=== PATIENT | male | born 1950 | race Caucasian/White ===

== ENCOUNTER 2017-04-18 03:27 | Inpatient (IN) | payer MEDICARE, OTHER ==
[~2017-04-18] VITALS: Ht 172.7 cm; Wt 74.0 kg
[2017-04-18] MEDS ORDERED: ALBUTEROL/IPRATROPIUM 2.5MG/0.5MG, 3 ML ONE ×2 (03:42→10:46)
[2017-04-18] MEDS ORDERED: PIPERACILLIN/TAZO/PMX 3.375GM 50 ML ONE (03:58)
[2017-04-18] MEDS ORDERED: methylPREDNISolone SOD SUCC 125 MG/2 ML ONE (03:58)
[2017-04-18] MEDS ORDERED: VANCOMYCIN PER PHARMACY IV ONE (04:00)
[2017-04-18] MEDS ORDERED: methylPREDNISolone SOD SUCC 125 MG/2 ML IVP ONE (04:00)
[2017-04-18] MEDS ORDERED: SODIUM CHLORIDE 0.9% 1,000ML IVBOLUS ONE (04:00)
[2017-04-18] MEDS ORDERED: PIPERACILLIN/TAZO/PMX 3.375GM 50 ML IV ONE (04:00)
[2017-04-18 04:09] LABS: BLOOD UREA NITROGEN 28 mg/dL (7-18)
[2017-04-18 04:12] LABS: ASPARTATE AMINO TRANSFERASE 18 U/L (15-37)
[2017-04-18] MEDS ORDERED: VANCOMYCIN 1,500 MG in SODIUM CHLORIDE 0.9% 250 ML IV ONE (04:15)
[2017-04-18 04:17] LABS: IS PT STATUS REG ER OR PRE ER? YES
[2017-04-18] MEDS ORDERED: OMEP40CA6 PO (04:23)
[2017-04-18] MEDS ORDERED: ATOR40TA78 PO (04:23)
[2017-04-18] MEDS ORDERED: AMLO5TAB2 PO (04:23)
[2017-04-18] MEDS ORDERED: LISI40TA PO (04:23)
[2017-04-18] MEDS ORDERED: TRAZ150T68 PO (04:23)
[2017-04-18] MEDS ORDERED: METO25TA35 PO (04:23)
[2017-04-18] MEDS ORDERED: LITH300C PO (04:23)
[2017-04-18] MEDS ORDERED: SENN8.6T98 PO (04:33)
[2017-04-18] MEDS ORDERED: BUDE10.2 INH (04:33)
[2017-04-18] MEDS ORDERED: LATA2.5D2 OP (04:33)
[2017-04-18] MEDS ORDERED: TIOT18CA INH (04:33)
[2017-04-18] MEDS ORDERED: SODIUM CHLORIDE 0.9% 1,000 ML IV ONE (04:39)
[2017-04-18] MEDS ORDERED: ISOS30TA8 PO (04:40)
[2017-04-18] MEDS ORDERED: GUAI600T53 PO (04:40)
[2017-04-18] MEDS ORDERED: PRED20TA PO (04:40)
[2017-04-18] MEDS ORDERED: ALBUTEROL INHALER INH (04:40)
[2017-04-18] MEDS ORDERED: DABI150C PO (04:40)
[2017-04-18] MEDS ORDERED: LEVO750T6 PO (04:40)
[2017-04-18] MEDS ORDERED: CLOP75TA22 PO (04:40)
[2017-04-18] MEDS: ALBUTEROL SULFATE 2.5 MG/3 ML NPPB SCH (04:48)
[2017-04-18] MEDS ORDERED: ONDANSETRON 2MG/ML, 2ML IVPush PRN ×2 (05:00→05:30)
[2017-04-18 05:30] LABS: ABG COLLECTION SITE RIGHT BRACHIAL
[2017-04-18] MEDS: methylPREDNISolone SOD SUCC 125 MG/2 ML IVPush SCH ×4 (05:30→23:43)
[2017-04-18] MEDS ORDERED: hydrALAzine 20 MG/ML, 1ML IVPush PRN (05:30)
[2017-04-18] MEDS ORDERED: morphine SULFATE 10 MG/ML, 1ML IVPush PRN (05:30)
[2017-04-18] MEDS ORDERED: POLYETHYLENE GLYCOL 17 GM PACKET PO PRN (05:30)
[2017-04-18] MEDS: NICOTINE 14MG/24 HR PATCH.TD24 TD SCH (05:30)
[2017-04-18] MEDS ORDERED: BISACODYL 10 MG SUPP PR PRN (05:30)
[2017-04-18] MEDS ORDERED: ENOXAPARIN 40 MG/0.4 ML SQ SCH (05:30)
[2017-04-18] MEDS ORDERED: ACETAMINOPHEN 325 MG TABLET PO PRN (05:30)
[2017-04-18] MEDS ORDERED: ENALAPRILAT 1.25 MG/ML, 2ML IVPush PRN (05:30)
[2017-04-18] MEDS ORDERED: OXYcodone IR 5MG TABLET PO PRN (05:30)
[2017-04-18] MEDS: ALBUTEROL/IPRATROPIUM 2.5MG/0.5MG, 3 ML NPPB SCH ×5 (06:00→23:30)
[2017-04-18] MEDS: SODIUM CHLORIDE 0.9% 1,000 ML IV SCH ×2 (06:39→12:01)
[2017-04-18 07:50] LABS: IS PT STATUS REG ER OR PRE ER? YES
[2017-04-18] MEDS ORDERED: TEMPLATE NON-FORMULARY MED. (Budesonide/Formoterol Fumarate (Symbicort 160-4.5 Mcg Inhaler INH SCH (09:00)
[2017-04-18] MEDS ORDERED: TEMPLATE NON-FORMULARY MED. (Tiotropium Bromide** (Spiriva**) 18 MCG) INH SCH (09:00)
[2017-04-18] MEDS: SENNA/DOCUSATE TABLET PO SCH (10:06)
[2017-04-18] MEDS: GUAIFENESIN ER 600 MG TABLET PO SCH ×2 (10:06→22:24)
[2017-04-18] MEDS: DABIGATRAN 150 MG CAPSULE PO SCH ×2 (10:08→22:24)
[2017-04-18] MEDS: ISOSORBIDE MONONITRATE ER 30 MG TABLET PO SCH (10:08)
[2017-04-18] MEDS: CLOPIDOGREL 75 MG TABLET PO SCH (10:08)
[2017-04-18] MEDS: METOPROLOL TARTRATE 25 MG TABLET PO SCH ×2 (10:08→22:23)
[2017-04-18] MEDS: LITHIUM CARBONATE 300 MG CAPSULE PO SCH ×2 (10:09→22:24)
[2017-04-18] MEDS: OMEPRAZOLE 20 MG CAPSULE.DR PO SCH (10:10)
[2017-04-18] MEDS: AMLODIPINE 5 MG TABLET PO SCH (10:10)
[2017-04-18] MEDS: LISINOPRIL 20 MG TABLET PO SCH (10:11)
[2017-04-18] MEDS: LATANOPROST OPHTH 0.005%, 2.5ML OP SCH (10:12)
[2017-04-18] MEDS ORDERED: IPRATROPIUM 0.5 MG/2.5 ML INHA HHN SCH (11:00)
[2017-04-18] MEDS: FLUTICASONE/VILANTEROL 200-25MCG/INH INH SCH (11:33)
[2017-04-18 14:02] LABS: IS PT STATUS REG ER OR PRE ER? NO
[2017-04-18 20:09] LABS: IS PT STATUS REG ER OR PRE ER? NO
[2017-04-18] MEDS ORDERED: TRAZODONE 150MG TABLET PO PRN (21:00)
[2017-04-18] MEDS ORDERED: FLUTICASONE/VILANTEROL 200-25MCG/INH INH SCH (21:00)
[2017-04-18] MEDS: ATORVASTATIN 40 MG TABLET PO SCH (22:24)
[2017-04-19] MEDS: ALBUTEROL/IPRATROPIUM 2.5MG/0.5MG, 3 ML NPPB SCH ×5 (02:58→19:04)
[2017-04-19 04:00] VITALS: BP 116/58
[2017-04-19 04:43] LABS: ASPARTATE AMINO TRANSFERASE 12 U/L (15-37); BLOOD UREA NITROGEN 22 mg/dL (7-18)
[2017-04-19 04:58] LABS: ABG COLLECTION SITE LEFT BRACHIAL
[2017-04-19] MEDS: NICOTINE 14MG/24 HR PATCH.TD24 TD SCH (05:30)
[2017-04-19] MEDS: methylPREDNISolone SOD SUCC 125 MG/2 ML IVPush SCH ×3 (06:18→17:24)
[2017-04-19] MEDS: GUAIFENESIN ER 600 MG TABLET PO SCH ×2 (08:34→21:28)
[2017-04-19] MEDS: OMEPRAZOLE 20 MG CAPSULE.DR PO SCH (08:34)
[2017-04-19] MEDS: DABIGATRAN 150 MG CAPSULE PO SCH ×2 (08:34→21:27)
[2017-04-19] MEDS: ISOSORBIDE MONONITRATE ER 30 MG TABLET PO SCH (08:34)
[2017-04-19] MEDS: FLUTICASONE/VILANTEROL 200-25MCG/INH INH SCH (08:34)
[2017-04-19] MEDS: LITHIUM CARBONATE 300 MG CAPSULE PO SCH ×2 (08:34→21:27)
[2017-04-19] MEDS: CLOPIDOGREL 75 MG TABLET PO SCH (08:34)
[2017-04-19] MEDS: AMLODIPINE 5 MG TABLET PO SCH (08:34)
[2017-04-19] MEDS: METOPROLOL TARTRATE 25 MG TABLET PO SCH ×2 (08:35→21:28)
[2017-04-19] MEDS: SENNA/DOCUSATE TABLET PO SCH (08:35)
[2017-04-19] MEDS: LISINOPRIL 20 MG TABLET PO SCH (08:35)
[2017-04-19 11:26] LABS: IS PT STATUS REG ER OR PRE ER? NO
[2017-04-19 12:18] VITALS: BP 127/67
[2017-04-19 14:30] VITALS: BP 132/74
[2017-04-19 19:51] VITALS: BP 157/68
[2017-04-19] MEDS: ATORVASTATIN 40 MG TABLET PO SCH (21:28)
[2017-04-19] MEDS: LATANOPROST OPHTH 0.005%, 2.5ML OP SCH (21:28)
[2017-04-20] MEDS: methylPREDNISolone SOD SUCC 125 MG/2 ML IVPush SCH ×3 (00:05→11:25)
[2017-04-20 02:21] VITALS: BP 124/66
[2017-04-20] MEDS: NICOTINE 14MG/24 HR PATCH.TD24 TD SCH (05:30)
[2017-04-20 05:37] LABS: ASPARTATE AMINO TRANSFERASE 12 U/L (15-37); BLOOD UREA NITROGEN 26 mg/dL (7-18)
[2017-04-20 06:40] VITALS: BP 155/77
[2017-04-20] MEDS: ALBUTEROL/IPRATROPIUM 2.5MG/0.5MG, 3 ML NPPB SCH ×4 (07:25→20:00)
[2017-04-20] MEDS ORDERED: REGADENOSON 0.4 MG/5 ML SYRINGE ONE (08:54)
[2017-04-20 11:00] VITALS: BP 144/78
[2017-04-20] MEDS: OMEPRAZOLE 20 MG CAPSULE.DR PO SCH (11:25)
[2017-04-20] MEDS: DABIGATRAN 150 MG CAPSULE PO SCH ×2 (11:25→21:33)
[2017-04-20] MEDS: LITHIUM CARBONATE 300 MG CAPSULE PO SCH ×2 (11:25→21:33)
[2017-04-20] MEDS: ISOSORBIDE MONONITRATE ER 30 MG TABLET PO SCH (11:26)
[2017-04-20] MEDS: LISINOPRIL 20 MG TABLET PO SCH (11:26)
[2017-04-20] MEDS: GUAIFENESIN ER 600 MG TABLET PO SCH ×2 (11:26→21:33)
[2017-04-20] MEDS: AMLODIPINE 5 MG TABLET PO SCH (11:26)
[2017-04-20] MEDS: CLOPIDOGREL 75 MG TABLET PO SCH (11:26)
[2017-04-20] MEDS: METOPROLOL TARTRATE 25 MG TABLET PO SCH ×2 (11:26→21:33)
[2017-04-20] MEDS: FLUTICASONE/VILANTEROL 200-25MCG/INH INH SCH (11:27)
[2017-04-20] MEDS: SENNA/DOCUSATE TABLET PO SCH (11:33)
[2017-04-20 13:28] VITALS: BP 140/82
[2017-04-20] MEDS: LATANOPROST OPHTH 0.005%, 2.5ML OP SCH (21:00)
[2017-04-20 21:30] VITALS: BP 127/65
[2017-04-20] MEDS: ATORVASTATIN 40 MG TABLET PO SCH (21:33)
[2017-04-21 00:51] VITALS: BP 134/67
[2017-04-21 05:09] LABS: BLOOD UREA NITROGEN 28 mg/dL (7-18)
[2017-04-21] MEDS: NICOTINE 14MG/24 HR PATCH.TD24 TD SCH (05:21)
[2017-04-21] MEDS: ALBUTEROL/IPRATROPIUM 2.5MG/0.5MG, 3 ML NPPB SCH ×2 (06:50→10:30)
[2017-04-21] MEDS ORDERED: FLUT1AER INH (07:41)
[2017-04-21] MEDS ORDERED: PRED20TA PO (07:41)
[2017-04-21 08:00] VITALS: BP 145/73
[2017-04-21] MEDS: LATANOPROST OPHTH 0.005%, 2.5ML OP SCH (08:43)
[2017-04-21] MEDS: GUAIFENESIN ER 600 MG TABLET PO SCH (08:44)
[2017-04-21] MEDS: ISOSORBIDE MONONITRATE ER 30 MG TABLET PO SCH (08:45)
[2017-04-21] MEDS: LITHIUM CARBONATE 300 MG CAPSULE PO SCH (08:45)
[2017-04-21] MEDS: AMLODIPINE 5 MG TABLET PO SCH (08:47)
[2017-04-21] MEDS: METOPROLOL TARTRATE 25 MG TABLET PO SCH (08:47)
[2017-04-21] MEDS: LISINOPRIL 20 MG TABLET PO SCH (08:49)
[2017-04-21] MEDS: CLOPIDOGREL 75 MG TABLET PO SCH (08:49)
[2017-04-21] MEDS: DABIGATRAN 150 MG CAPSULE PO SCH (08:49)
[2017-04-21] MEDS: SENNA/DOCUSATE TABLET PO SCH (08:50)
[2017-04-21] MEDS: OMEPRAZOLE 20 MG CAPSULE.DR PO SCH (08:50)
[2017-04-21] MEDS ORDERED: FLUTICASONE/VILANTEROL 100-25MCG/INH INH SCH (09:00)
== END 2017-04-21 12:07 | disposition home or self-care (01) | DRG 189 ==
LOC: ED 04:02 → EDIP 04:39 → CCU 11:27 → 5SO 04-19 12:08
PROVIDERS: ADMIT Internal Medicine
PROC: 5A09357 Assistance with Respiratory Ventilation, Less than 24 Consecutive Hours, Continuous Positive Airway Pressure (ICD-10-PCS; principal; 2017-04-18)
DX: J96.21 Acute and chronic respiratory failure with hypoxia (principal); J44.1 Chronic obstructive pulmonary disease with (acute) exacerbation; E87.2 Acidosis; R65.10 Systemic inflammatory response syndrome (SIRS) of non-infectious origin without acute organ dysfunction; I73.9 Peripheral vascular disease, unspecified; C67.9 Malignant neoplasm of bladder, unspecified; D63.8 Anemia in other chronic diseases classified elsewhere; D72.829 Elevated white blood cell count, unspecified; E78.5 Hyperlipidemia, unspecified; I11.0 Hypertensive heart disease with heart failure; I25.10 Atherosclerotic heart disease of native coronary artery without angina pectoris; I48.91 Unspecified atrial fibrillation; I50.9 Heart failure, unspecified; J96.22 Acute and chronic respiratory failure with hypercapnia; N40.0 Benign prostatic hyperplasia without lower urinary tract symptoms; T38.0X5A Adverse effect of glucocorticoids and synthetic analogues, initial encounter; Z51.5 Encounter for palliative care; Z82.49 Family history of ischemic heart disease and other diseases of the circulatory system; Z86.79 Personal history of other diseases of the circulatory system; Z87.891 Personal history of nicotine dependence; Z95.1 Presence of aortocoronary bypass graft; Z95.5 Presence of coronary angioplasty implant and graft
CPT/HCPCS: 36415; 36600; 71010; 78452; 80048; 80053; 81003; 82803; 83036; 83605; 83735; 83880; 84145; 84439; 84443; 84484; 85025; 87040; 87081; 93005; 93017; 93306; 94640; 94660; 96361; 96365; 96375; J2543; J2785; J3370; J7613; J7620; A9502; C9898; J2930; J7030; J7050; J7512

== ENCOUNTER 2018-06-24 21:53 | Inpatient (IN) | payer MEDICARE ==
[~2018-06-24] VITALS: Ht 172.7 cm; Wt 87.0 kg
[~2018-06-24 21:53] MED LIST: ALBUTEROL INHALER INH; AMLO5TAB7 PO; ATOR40TA78 PO; BUDE10.2 INH; CLOP75TA52 PO; DABI150C PO; FLUT1AER INH; GUAI600T80 PO; ISOS30TA8 PO; LATA2.5D2 OP; LEVO750T6 PO; LISI40TA PO; LITH300C PO; METO25TA35 PO; OMEP40CA6 PO; PRED20TA PO; SENN8.6T98 PO; TIOT18CA INH; TRAZ150T62 PO
[2018-06-24] MEDS ORDERED: SODIUM CHLORIDE FLUSH 10ML SYR IVF ONE (22:30)
[2018-06-24 22:35] LABS: BASOPHILS # (AUTO) 0.04 x10^3/uL (0-0.1); BASOPHILS % (AUTO) 0 % (0-1); EOSINOPHILS # (AUTO) 0.14 x10^3/uL (0-0.4); EOSINOPHILS % (AUTO) 1 % (1-7); LYMPHOCYTES # (AUTO) 0.73 x10^3/uL (1-3.4); LYMPHOCYTES % (AUTO) 7 % (22-44); MD NO; MEAN CORPUSCULAR HEMOGLOBIN 29.7 pg (27.5-34.5); MEAN CORPUSCULAR VOLUME 90.1 fL (81-97); MEAN PLATELET VOLUME 8.5 fL (7.4-10.4); MONOCYTES # (AUTO) 0.42 x10^3/uL (0.2-0.8); MONOCYTES % (AUTO) 4 % (2-9); NEUTROPHILS # (AUTO) 8.91 x10^3/uL (1.8-6.8); NEUTROPHILS % (AUTO) 87 % (42-75); PLATELET COUNT 209 x10^3/uL (130-400); RED BLOOD COUNT 4.04 x10^6/uL (4.38-5.82); RED CELL DISTRIBUTION WIDTH 15.8 % (9.4-14.8)
[2018-06-24 22:47] LABS: ALANINE AMINOTRANSFERASE 20 U/L (12-78); CALCIUM 8.2 mg/dL (8.5-10.1); CHLORIDE 111 mmol/L (98-107)
[2018-06-24 22:50] LABS: INTERNATIONAL NORMALIZED RATIO 1.24 (0.93-1.1); PROTHROMBIN TIME 12.8 Seconds (9.6-11.5)
[2018-06-24 22:51] LABS: ALKALINE PHOSPHATASE 96 U/L (45-117); BILIRUBIN,TOTAL 0.3 mg/dL (0.2-1.0); TOTAL PROTEIN 7.1 g/dL (6.4-8.2)
[2018-06-24 22:58] LABS: ANION GAP 4 mmol/L (5-15)
[2018-06-24 23:04] LABS: TROPONIN I 0.208 ng/mL (0.000-0.045)
[2018-06-24] MEDS ORDERED: OMNIPAQUE 350 MG/ML, 100ML BOTTLE ONE (23:11)
[2018-06-24] MEDS ORDERED: ASPIRIN 81 MG TABLET CHEW ONE (23:27)
[2018-06-24] MEDS ORDERED: ASPIRIN 81 MG TABLET CHEW PO ONE (23:30)
[2018-06-24] MEDS ORDERED: MORPHINE SULFATE 4 MG/ML, 1ML IVPush PRN (23:30)
[2018-06-24] MEDS ORDERED: ONDANSETRON 2MG/ML, 2ML IVPush ONE (23:30)
[2018-06-24] MEDS ORDERED: MORPHINE SULFATE 4 MG/ML, 1ML ONE (23:42)
[2018-06-25] VITALS (7 sets, daily range): BP systolic 100–151; BP diastolic 56–82
[2018-06-25] MEDS ORDERED: morphine SULFATE 10 MG/ML, 1ML IVPush PRN (00:30)
[2018-06-25] MEDS ORDERED: ALBUTEROL SULFATE 2.5 MG/3 ML NPPB PRN (00:30)
[2018-06-25] MEDS ORDERED: NITROGLYCERIN 0.4 MG BOTTLE (25 TABS) SL PRN (00:30)
[2018-06-25] MEDS ORDERED: ONDANSETRON 2MG/ML, 2ML IVPush PRN (00:30)
[2018-06-25] MEDS ORDERED: POLYETHYLENE GLYCOL 17 GM PACKET PO PRN (00:30)
[2018-06-25] MEDS ORDERED: BISACODYL 10 MG SUPP PR PRN (00:30)
[2018-06-25] MEDS: NICOTINE 14MG/24 HR PATCH.TD24 TD SCH ×2 (00:30→21:10)
[2018-06-25] MEDS ORDERED: TRAZODONE 150MG TABLET PO PRN (00:30)
[2018-06-25 06:03] LABS: BASOPHILS # (AUTO) 0.03 x10^3/uL (0-0.1); BASOPHILS % (AUTO) 0 % (0-1); EOSINOPHILS # (AUTO) 0.18 x10^3/uL (0-0.4); EOSINOPHILS % (AUTO) 2 % (1-7); LYMPHOCYTES # (AUTO) 1.12 x10^3/uL (1-3.4); LYMPHOCYTES % (AUTO) 13 % (22-44); MD NO; MEAN CORPUSCULAR HEMOGLOBIN 29.8 pg (27.5-34.5); MEAN CORPUSCULAR VOLUME 90.3 fL (81-97); MONOCYTES # (AUTO) 0.58 x10^3/uL (0.2-0.8); MONOCYTES % (AUTO) 7 % (2-9); NEUTROPHILS # (AUTO) 6.69 x10^3/uL (1.8-6.8); NEUTROPHILS % (AUTO) 78 % (42-75); PLATELET COUNT 190 x10^3/uL (130-400); RED BLOOD COUNT 3.86 x10^6/uL (4.38-5.82); RED CELL DISTRIBUTION WIDTH 15.8 % (9.4-14.8)
[2018-06-25 06:09] LABS: CHLORIDE 112 mmol/L (98-107)
[2018-06-25 06:20] LABS: ALANINE AMINOTRANSFERASE 18 U/L (12-78); ALBUMIN 2.9 g/dL (3.4-5.0); ALKALINE PHOSPHATASE 94 U/L (45-117); ANION GAP 3 mmol/L (5-15); BILIRUBIN,TOTAL 0.4 mg/dL (0.2-1.0); CALCIUM 8.3 mg/dL (8.5-10.1); CREATININE 0.99 mg/dL (0.7-1.3); TOTAL PROTEIN 6.6 g/dL (6.4-8.2); TROPONIN I 0.184 ng/mL (0.000-0.045)
[2018-06-25] MEDS: ALBUTEROL/IPRATROPIUM 2.5MG/0.5MG, 3 ML NPPB SCH ×4 (06:55→19:38)
[2018-06-25] MEDS ORDERED: IPRATROPIUM 0.5 MG/2.5 ML INHA NPPB SCH (07:00)
[2018-06-25] MEDS ORDERED: ALBUTEROL SULFATE 2.5 MG/3 ML NPPB SCH (07:00)
[2018-06-25] MEDS ORDERED: LISINOPRIL 20 MG TABLET ONE (07:54)
[2018-06-25] MEDS: CLOPIDOGREL 75 MG TABLET PO SCH (08:59)
[2018-06-25] MEDS ORDERED: FLUTICASONE/VILANTEROL 100-25MCG/INH INH SCH (09:00)
[2018-06-25] MEDS ORDERED: DABIGATRAN 150 MG CAPSULE PO SCH (09:00)
[2018-06-25] MEDS: AMLODIPINE 5 MG TABLET PO SCH (09:00)
[2018-06-25] MEDS: SENNA/DOCUSATE TABLET PO SCH (09:00)
[2018-06-25] MEDS ORDERED: TEMPLATE NON-FORMULARY MED. (Lisinopril** 40 MG) PO SCH (09:00)
[2018-06-25] MEDS: OMEPRAZOLE 20 MG CAPSULE.DR PO SCH (09:00)
[2018-06-25] MEDS: LITHIUM CARBONATE 300 MG CAPSULE PO SCH ×2 (09:00→21:09)
[2018-06-25] MEDS: LISINOPRIL 20 MG TABLET PO SCH (09:01)
[2018-06-25] MEDS: ISOSORBIDE MONONITRATE ER 30 MG TABLET PO SCH (09:01)
[2018-06-25] MEDS: GUAIFENESIN ER 600 MG TABLET PO SCH ×2 (09:01→21:09)
[2018-06-25] MEDS: SODIUM CHLORIDE FLUSH 10ML SYR IVF SCH ×2 (09:02→21:10)
[2018-06-25] MEDS ORDERED: REGADENOSON 0.4 MG/5 ML SYRINGE ONE (09:30)
[2018-06-25] MEDS: LATANOPROST OPHTH 0.005%, 2.5ML OP SCH (12:29)
[2018-06-25] MEDS: METOPROLOL TARTRATE 25 MG TABLET PO SCH ×2 (12:29→21:09)
[2018-06-25] MEDS: FLUTICASONE/VILANTEROL 200-25MCG/INH INH SCH (12:30)
[2018-06-25 13:23] LABS: TROPONIN I 0.173 ng/mL (0.000-0.045)
[2018-06-25] MEDS: ACETAMINOPHEN 325 MG TABLET PO PRN (15:09)
[2018-06-25] MEDS: ATORVASTATIN 40 MG TABLET PO SCH (21:09)
[2018-06-26 01:55] VITALS: BP 121/65
[2018-06-26] MEDS: ACETAMINOPHEN 325 MG TABLET PO PRN ×2 (03:14→20:15)
[2018-06-26 05:30] LABS: ANION GAP 4 mmol/L (5-15); CHLORIDE 111 mmol/L (98-107)
[2018-06-26 05:35] LABS: CHOLESTEROL, TOTAL 133 mg/dL (140-239); HDL CHOL % 33 % (26-37); HDL CHOLESTEROL (DIRECT) 44 mg/dL (40-60); LDL CHOLESTEROL,CALCULATED 74 mg/dL (54-169); LDL/HDL RATIO 1.7 (0.5-3.0); TRIGLYCERIDES 75 mg/dL (50-200); VLDL CHOLESTEROL 15 mg/dL (0-25)
[2018-06-26 06:56] LABS: BASOPHILS # (AUTO) 0.03 x10^3/uL (0-0.1); BASOPHILS % (AUTO) 0 % (0-1); EOSINOPHILS # (AUTO) 0.21 x10^3/uL (0-0.4); EOSINOPHILS % (AUTO) 2 % (1-7); LYMPHOCYTES # (AUTO) 0.69 x10^3/uL (1-3.4); LYMPHOCYTES % (AUTO) 8 % (22-44); MD NO; MEAN CORPUSCULAR HEMOGLOBIN 30.6 pg (27.5-34.5); MEAN CORPUSCULAR HGB CONC 33.5 g/dL (33.2-36.2); MEAN CORPUSCULAR VOLUME 91.5 fL (81-97); MEAN PLATELET VOLUME 9.3 fL (7.4-10.4); MONOCYTES # (AUTO) 0.39 x10^3/uL (0.2-0.8); MONOCYTES % (AUTO) 5 % (2-9); NEUTROPHILS # (AUTO) 7.41 x10^3/uL (1.8-6.8); NEUTROPHILS % (AUTO) 85 % (42-75); PLATELET COUNT 185 x10^3/uL (130-400); RED BLOOD COUNT 3.65 x10^6/uL (4.38-5.82); RED CELL DISTRIBUTION WIDTH 15.9 % (9.4-14.8)
[2018-06-26] MEDS: ALBUTEROL/IPRATROPIUM 2.5MG/0.5MG, 3 ML NPPB SCH ×4 (07:20→19:27)
[2018-06-26 09:17] VITALS: BP 129/87
[2018-06-26] MEDS: AMLODIPINE 5 MG TABLET PO SCH (09:29)
[2018-06-26] MEDS: OMEPRAZOLE 20 MG CAPSULE.DR PO SCH (09:29)
[2018-06-26] MEDS: ASPIRIN 81 MG TABLET CHEW PO SCH (09:29)
[2018-06-26] MEDS: CLOPIDOGREL 75 MG TABLET PO SCH (09:30)
[2018-06-26] MEDS: SENNA/DOCUSATE TABLET PO SCH (09:30)
[2018-06-26] MEDS: METOPROLOL TARTRATE 25 MG TABLET PO SCH ×2 (09:30→20:15)
[2018-06-26] MEDS: ISOSORBIDE MONONITRATE ER 30 MG TABLET PO SCH (09:30)
[2018-06-26] MEDS: GUAIFENESIN ER 600 MG TABLET PO SCH ×2 (09:31→20:15)
[2018-06-26] MEDS: LITHIUM CARBONATE 300 MG CAPSULE PO SCH ×2 (09:31→20:15)
[2018-06-26] MEDS: LATANOPROST OPHTH 0.005%, 2.5ML OP SCH (09:31)
[2018-06-26] MEDS: FLUTICASONE/VILANTEROL 200-25MCG/INH INH SCH (09:31)
[2018-06-26] MEDS: SODIUM CHLORIDE FLUSH 10ML SYR IVF SCH ×2 (09:32→20:16)
[2018-06-26] MEDS: LISINOPRIL 20 MG TABLET PO SCH (09:34)
[2018-06-26] MEDS ORDERED: SODIUM CHLORIDE 0.9% 1,000 ML IV ONE (10:00)
[2018-06-26 12:58] VITALS: BP 116/64
[2018-06-26] MEDS ORDERED: HEPARIN 1,000 UNITS/ML, 10ML ONE (14:38)
[2018-06-26] MEDS ORDERED: VERAPAMIL 2.5 MG/ML, 2ML ONE (14:38)
[2018-06-26] MEDS ORDERED: MIDAZOLAM 1 MG/ML, 5ML ONE (14:38)
[2018-06-26] MEDS ORDERED: FENTANYL PF 100 MCG/2ML ONE (14:38)
[2018-06-26] MEDS ORDERED: BIVALIRUDIN 250 MG ONE (14:39)
[2018-06-26] MEDS ORDERED: SODIUM CHLORIDE 0.9% 1,000 ML IV SCH (17:00)
[2018-06-26 18:58] VITALS: BP 118/68
[2018-06-26] MEDS: ATORVASTATIN 40 MG TABLET PO SCH (20:15)
[2018-06-26] MEDS: NICOTINE 14MG/24 HR PATCH.TD24 TD SCH (23:52)
[2018-06-27 00:12] VITALS: BP 119/72
[2018-06-27] MEDS ORDERED: TRAZODONE 50MG TABLET ONE (00:45)
[2018-06-27] MEDS: ACETAMINOPHEN 325 MG TABLET PO PRN ×2 (00:48→08:32)
[2018-06-27] MEDS: ALBUTEROL/IPRATROPIUM 2.5MG/0.5MG, 3 ML NPPB SCH ×2 (06:35→10:24)
[2018-06-27 07:04] VITALS: BP 128/80
[2018-06-27] MEDS: GUAIFENESIN ER 600 MG TABLET PO SCH (08:28)
[2018-06-27] MEDS: AMLODIPINE 5 MG TABLET PO SCH (08:28)
[2018-06-27] MEDS: LATANOPROST OPHTH 0.005%, 2.5ML OP SCH (08:28)
[2018-06-27] MEDS: FLUTICASONE/VILANTEROL 200-25MCG/INH INH SCH (08:28)
[2018-06-27] MEDS: ISOSORBIDE MONONITRATE ER 30 MG TABLET PO SCH (08:29)
[2018-06-27] MEDS: LITHIUM CARBONATE 300 MG CAPSULE PO SCH (08:29)
[2018-06-27] MEDS: OMEPRAZOLE 20 MG CAPSULE.DR PO SCH (08:29)
[2018-06-27] MEDS: ASPIRIN 81 MG TABLET CHEW PO SCH (08:29)
[2018-06-27] MEDS: SENNA/DOCUSATE TABLET PO SCH (08:29)
[2018-06-27] MEDS: METOPROLOL TARTRATE 25 MG TABLET PO SCH (08:30)
[2018-06-27] MEDS: CLOPIDOGREL 75 MG TABLET PO SCH (08:30)
[2018-06-27] MEDS: LISINOPRIL 20 MG TABLET PO SCH (08:30)
[2018-06-27] MEDS: SODIUM CHLORIDE FLUSH 10ML SYR IVF SCH (08:30)
[2018-06-27] MEDS ORDERED: DABIGATRAN 150 MG CAPSULE PO SCH ×2 (11:00→21:00)
[2018-06-27 12:48] VITALS: BP 129/77
== END 2018-06-27 14:06 | disposition home or self-care (01) | DRG 281 ==
LOC: ED 23:32 → EDIP 06-25 00:42 → 5SO 06-25 01:14 → DCLOUNGE 06-27 13:40
PROVIDERS: ADMIT Family Medicine; ATTEND Family Medicine
PROC: 4A023N7 Measurement of Cardiac Sampling and Pressure, Left Heart, Percutaneous Approach (ICD-10-PCS; principal; 2018-06-26)
PROC: B2111ZZ Fluoroscopy of Multiple Coronary Arteries using Low Osmolar Contrast (ICD-10-PCS; 2018-06-26)
PROC: B2131ZZ Fluoroscopy of Multiple Coronary Artery Bypass Grafts using Low Osmolar Contrast (ICD-10-PCS; 2018-06-26)
DX: I21.4 Non-ST elevation (NSTEMI) myocardial infarction (principal); J96.10 Chronic respiratory failure, unspecified whether with hypoxia or hypercapnia; E44.0 Moderate protein-calorie malnutrition; I25.10 Atherosclerotic heart disease of native coronary artery without angina pectoris; J44.9 Chronic obstructive pulmonary disease, unspecified; Z68.29 Body mass index [BMI] 29.0-29.9, adult; D64.9 Anemia, unspecified; E78.5 Hyperlipidemia, unspecified; F17.210 Nicotine dependence, cigarettes, uncomplicated; G89.29 Other chronic pain; I11.0 Hypertensive heart disease with heart failure; I50.9 Heart failure, unspecified; I73.9 Peripheral vascular disease, unspecified; K80.20 Calculus of gallbladder without cholecystitis without obstruction; N40.0 Benign prostatic hyperplasia without lower urinary tract symptoms; Z79.02 Long term (current) use of antithrombotics/antiplatelets; Z80.9 Family history of malignant neoplasm, unspecified; Z82.5 Family history of asthma and other chronic lower respiratory diseases; Z85.51 Personal history of malignant neoplasm of bladder; Z86.718 Personal history of other venous thrombosis and embolism; Z86.79 Personal history of other diseases of the circulatory system; Z92.21 Personal history of antineoplastic chemotherapy; Z92.3 Personal history of irradiation; Z95.1 Presence of aortocoronary bypass graft; Z95.5 Presence of coronary angioplasty implant and graft; Z96.642 Presence of left artificial hip joint; Z99.81 Dependence on supplemental oxygen; I71.4 Abdominal aortic aneurysm, without rupture; K43.9 Ventral hernia without obstruction or gangrene
CPT/HCPCS: 36415; 71045; 74177; 78452; 80048; 80053; 80061; 80178; 83880; 84484; 85025; 85610; 85730; 93005; 93017; 93306; 93458; 94640; 99156; 99157; 99285; C1760; C1769; C1894; G0378; J0583; J1644; J2250; J2785; J3010; J7613; J7620; Q9967; A9502; C9898; J7030

== ENCOUNTER 2018-12-01 15:37 | Emergency (ER) | payer MEDICARE, OTHER ==
[~2018-12-01] VITALS: Ht 170.2 cm; Wt 85.0 kg
[~2018-12-01 15:37] MED LIST changes: +AMLO-150 PO; -AMLO5TAB7 PO
--- NOTE | 2018-12-01 16:00 | NUR ---
BIB [facility] FROM HOME W/ CO SOB X TWO DAYS. HX OF COPD, WEARS 4L BY NC AT BASELINE. PT SPO2 >90% ON 4L. +L SIDED CP, TENDER TO PALPATION. NO PAIN AT THIS TIME. FREQUENT COUGH NOTED, PT REPORTS CLEAR SPUTUM "JUST MY NORMAL COPD GEL". RESPIRATIONS W/ MILDLY FORCED EXHILATIONS. LUNG SOUNDS DIMINISHED THROUGHOUT. PT AND ARE DIFFICULT TO OBTAIN HX FROM. DENIES FEVER. CP NON-RADIATING. BP/SPO2/ECG MONITORING IN PLACE. NSR ON MONITOR. IV ESTABLISHED. LABS DRAWN.
--- NOTE | 2018-12-01 16:46 | NUR ---
PT STATING INCREASE IN CHEST PAIN. REPEAT EKG IN PROGRESS.
[2018-12-01 17:03] VITALS: BP 96/45
--- NOTE | 2018-12-01 17:06 | NUR ---
ERP AT BEDSIDE FOR INITIAL ASSESSMENT
[2018-12-01 17:25] LABS: BASOPHILS # (AUTO) 0.05 x10^3/uL (0-0.1); BASOPHILS % (AUTO) 1 % (0-1); EOSINOPHILS % (AUTO) 3 % (1-7); LYMPHOCYTES # (AUTO) 0.87 x10^3/uL (1-3.4); LYMPHOCYTES % (AUTO) 9 % (22-44); MD NO; MEAN CORPUSCULAR HEMOGLOBIN 30.7 pg (27.5-34.5); MEAN CORPUSCULAR HGB CONC 33.1 g/dL (33.2-36.2); MEAN CORPUSCULAR VOLUME 92.5 fL (81-97); MEAN PLATELET VOLUME 9.5 fL (7.4-10.4); MONOCYTES # (AUTO) 0.64 x10^3/uL (0.2-0.8); MONOCYTES % (AUTO) 7 % (2-9); NEUTROPHILS # (AUTO) 7.89 x10^3/uL (1.8-6.8); NEUTROPHILS % (AUTO) 81 % (42-75); PLATELET COUNT 266 x10^3/uL (130-400); RED BLOOD COUNT 4.27 x10^6/uL (4.38-5.82); RED CELL DISTRIBUTION WIDTH 17.4 % (9.4-14.8)
[2018-12-01] MEDS ORDERED: ALBUTEROL/IPRATROPIUM 2.5MG/0.5MG, 3 ML NPPB ONE (17:30)
[2018-12-01] MEDS ORDERED: ALBUTEROL/IPRATROPIUM 2.5MG/0.5MG, 3 ML ONE (17:36)
[2018-12-01 17:37] LABS: ALBUMIN 3.7 g/dL (3.4-5.0); ANION GAP 1 mmol/L (5-15); CHLORIDE 107 mmol/L (98-107); CREATININE 1.75 mg/dL (0.7-1.3)
[2018-12-01 17:40] LABS: TROPONIN I 0.047 ng/mL (0.000-0.045)
--- NOTE | 2018-12-01 17:44 | NUR ---
PT TO NURSES STATION, VERBALLY AGGRESSIVE TOWARD RN. "WE'RE GETTING THE HELL OUT OF HERE, FUCK THIS PLACE. WE'RE LEAVING". THIS RN TO BEDSIDE TO REMOVE IV AND MONITORING. PT BLED THROUGH GAUZE AT IV SITE, BLOOD ON PANTS. 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 WE'RE NEVER COMING TO THIS PLACE AGAIN. MY HAD CHEST PAIN AND NOONE EVER CAME TO SEE HIM". RN ASSURED PT THAT AT ONSET OF CP A REPEAT EKG WAS COMPLETED AND ERP MADE AWARE. LISSETTE GILBERT SIGNED BY W/ PT'S APPROVAL. PT/ MADE AWARE TO SEEK MEDICAL CARE IN THE EVENT OF WORSENING S/S. PTS RESPIRATIONS EVEN/UNLABORED. AMBULATED STEADILY TO DC WITH ON OWN O2. REPORTS THAT THEY WILL BE TAKING TAXI HOME.
== END 2018-12-01 17:49 | disposition left against medical advice (07) ==
LOC: ED 17:27
DX: R06.00 Dyspnea, unspecified (principal); J44.9 Chronic obstructive pulmonary disease, unspecified; E78.5 Hyperlipidemia, unspecified; I50.9 Heart failure, unspecified; I25.10 Atherosclerotic heart disease of native coronary artery without angina pectoris; I25.2 Old myocardial infarction; Z95.1 Presence of aortocoronary bypass graft
CPT/HCPCS: 36415; 71045; 80048; 82040; 84484; 85025; 93005; 99284

== ENCOUNTER 2018-12-04 09:29 | Emergency (ER) | payer MEDICARE, OTHER ==
[~2018-12-04] VITALS: Ht 170.2 cm; Wt 85.0 kg
--- NOTE | 2018-12-04 09:35 | NUR ---
MD IS AT THE BEDSIDE TO ASSESS
[2018-12-04 09:38] VITALS: BP 107/46
--- NOTE | 2018-12-04 09:40 | NUR ---
rt notified of neb tx via phone
--- NOTE | 2018-12-04 09:46 | NUR ---
CXR AT THE BEDSIDE
[2018-12-04] MEDS ORDERED: ALBUTEROL/IPRATROPIUM 2.5MG/0.5MG, 3 ML NPPB ONE (10:00)
[2018-12-04 10:41] LABS: BASOPHILS # (AUTO) 0.05 x10^3/uL (0-0.1); BASOPHILS % (AUTO) 1 % (0-1); EOSINOPHILS # (AUTO) 0.12 x10^3/uL (0-0.4); EOSINOPHILS % (AUTO) 1 % (1-7); LYMPHOCYTES # (AUTO) 0.89 x10^3/uL (1-3.4); LYMPHOCYTES % (AUTO) 9 % (22-44); MD NO; MEAN CORPUSCULAR HEMOGLOBIN 30.5 pg (27.5-34.5); MEAN CORPUSCULAR HGB CONC 33.2 g/dL (33.2-36.2); MEAN CORPUSCULAR VOLUME 92.1 fL (81-97); MEAN PLATELET VOLUME 8.4 fL (7.4-10.4); MONOCYTES # (AUTO) 0.75 x10^3/uL (0.2-0.8); MONOCYTES % (AUTO) 7 % (2-9); NEUTROPHILS # (AUTO) 8.37 x10^3/uL (1.8-6.8); NEUTROPHILS % (AUTO) 82 % (42-75); PLATELET COUNT 241 x10^3/uL (130-400); RED BLOOD COUNT 3.97 x10^6/uL (4.38-5.82)
[2018-12-04 10:52] LABS: ALBUMIN 3.5 g/dL (3.4-5.0); ANION GAP 5 mmol/L (5-15); CALCIUM 9.4 mg/dL (8.5-10.1); CHLORIDE 106 mmol/L (98-107); CREATININE 1.58 mg/dL (0.7-1.3)
--- NOTE | 2018-12-04 11:41 | NUR ---
I SPOKE W JASS AT [facility]. SHE STATED THAT SHE WOULD SEND A COLLIERY CLERK TO THE PTS RESIDENCE RIGHT AWAY TO RERPAIR/REPLACE O2 CONCENTRATOR. PT HAS PORTABLE TANK W HIM TO BRIDEGE UNTIL HE RECEIVES A RIDE HOME.
[2018-12-04] MEDS ORDERED: ALBUTEROL/IPRATROPIUM 2.5MG/0.5MG, 3 ML ONE (11:52)
== END 2018-12-04 12:10 | disposition home or self-care (01) ==
LOC: ED 10:50
DX: J96.11 Chronic respiratory failure with hypoxia (principal); J43.9 Emphysema, unspecified; E78.5 Hyperlipidemia, unspecified; I25.2 Old myocardial infarction; I50.9 Heart failure, unspecified; I25.10 Atherosclerotic heart disease of native coronary artery without angina pectoris; Z95.1 Presence of aortocoronary bypass graft
CPT/HCPCS: 36415; 71045; 80048; 82040; 85025; 93005; 99284; J7512

== ENCOUNTER 2018-12-24 04:51 | Inpatient (IN) | payer MEDICARE ==
[~2018-12-24] VITALS: Ht 165.1 cm; Wt 70.4 kg
[~2018-12-24 04:51] MED LIST changes: +CEFD300C37 PO; +DOXY100T PO; +PRED10TA PO
--- NOTE | 2018-12-24 05:15 | NUR ---
pt ststes off psych meds x 2 weeks and now feels like he may hurt some one states ptsd
--- NOTE | 2018-12-24 05:34 | NUR ---
1 bag of clothes placed in locker and o2 tank placed by locker
--- NOTE | 2018-12-24 06:07 | NUR ---
vivi hummel to lab
[2018-12-24 06:18] LABS: MICROSCOPIC NOT IND
[2018-12-24 06:19] LABS: CULTURE INDICATED? NO
[2018-12-24 06:31] LABS: AMPHETAMINE SCREEN, URINE Negative (Negative); BARBITURATE SCREEN, URINE Negative (Negative); BENZODIAZEPINE SCREEN, URINE Negative (Negative); CANNABINOID SCREEN, URINE Negative (Negative); COCAINE SCREEN, URINE Negative (Negative); METHADONE SCREEN, URINE Negative (Negative); OPIATE SCREEN, URINE Negative (Negative)
--- NOTE | 2018-12-24 07:04 | NUR ---
received report from Gaby. pt upright on gurney awake, calm & comfortable, watching TV, DIOMEDE but responds approp to staff, NAD, comfort measures provided, pt remains in safe environment, sitter in view.
[2018-12-24 07:12] LABS: BASOPHILS # (AUTO) 0.04 x10^3/uL (0-0.1); BASOPHILS % (AUTO) 0 % (0-1); EOSINOPHILS # (AUTO) 0.02 x10^3/uL (0-0.4); EOSINOPHILS % (AUTO) 0 % (1-7); LYMPHOCYTES # (AUTO) 0.78 x10^3/uL (1-3.4); LYMPHOCYTES % (AUTO) 7 % (22-44); MD NO; MEAN CORPUSCULAR HEMOGLOBIN 30.1 pg (27.5-34.5); MEAN CORPUSCULAR HGB CONC 32.3 g/dL (33.2-36.2); MEAN CORPUSCULAR VOLUME 93.1 fL (81-97); MEAN PLATELET VOLUME 9.1 fL (7.4-10.4); MONOCYTES # (AUTO) 0.51 x10^3/uL (0.2-0.8); MONOCYTES % (AUTO) 5 % (2-9); NEUTROPHILS % (AUTO) 88 % (42-75); PLATELET COUNT 250 x10^3/uL (130-400); RED BLOOD COUNT 3.55 x10^6/uL (4.38-5.82); RED CELL DISTRIBUTION WIDTH 17.1 % (9.4-14.8)
[2018-12-24 07:22] LABS: ALANINE AMINOTRANSFERASE 23 U/L (12-78); ALBUMIN 2.7 g/dL (3.4-5.0); ANION GAP 4 mmol/L (5-15); CALCIUM 8.4 mg/dL (8.5-10.1); CHLORIDE 112 mmol/L (98-107); CREATININE 0.81 mg/dL (0.7-1.3); SALICYLATE LEVEL 2.1 mg/dL (2.8-20.0)
[2018-12-24 07:26] LABS: ACETAMINOPHEN < 2 mcg/mL (10-30); ALKALINE PHOSPHATASE 103 U/L (45-117); BILIRUBIN,TOTAL 0.2 mg/dL (0.2-1.0); TOTAL PROTEIN 6.3 g/dL (6.4-8.2)
[2018-12-24 07:27] LABS: TROPONIN I 0.375 ng/mL (0.000-0.045)
--- NOTE | 2018-12-24 07:57 | NUR ---
pt remains upright on guedwar awake, calm & comfortable, watching TV, [place] but responds approp to staff, NAD, comfort measures provided, pt remains in safe environment, sitter in view. ERP updated pt on POC.
--- NOTE | 2018-12-24 08:23 | NUR ---
breakfast tray given
--- NOTE | 2018-12-24 09:04 | NUR ---
report given to Melissa
--- NOTE | 2018-12-24 09:10 | NUR ---
REPORT FROM VIKTORIA AMARAL, ASSUME CARE OF PT AT THIS TIME. PT ALLOWED MALE FRIEND TO VISIT. PT CALLED TO NOTIFY OF ADMIT AND LOGISTICS WITH MONEY. PT CALM AND COOPERATIVE AT THIS TIME. SITTER AT DOORWAY, AWAITING ADMIT BED.
--- NOTE | 2018-12-24 10:17 | NUR ---
CONTINUE TO AWAIT ADMISSION ORDERS AND BED. PT UPDATED ON POC. PT'S SHEET SOILED, CHANGED AND PT ASSISTED IN REPOSITIONING. VSS/UPDATED IN COMPUTER.
--- NOTE | 2018-12-24 10:41 | NUR ---
REPORT TO SOC.
[2018-12-24] MEDS ORDERED: SENNOSIDES 17.2 MG PO SCH (11:00)
[2018-12-24] MEDS: (Budesonide/Formoterol Fumarate (Symbicort 160-4.5 Mcg Inhaler INH SCH ×2 (11:00→21:00)
[2018-12-24] MEDS ORDERED: ALBUTEROL SULFATE 2.5 MG/3 ML HHN PRN (11:00)
[2018-12-24] MEDS ORDERED: TEMPLATE NON-FORMULARY MED. (Tiotropium Bromide** (Spiriva**) 18 MCG) INH SCH (11:00)
--- NOTE | 2018-12-24 11:10 | NUR ---
PT TALKING WITH SOC AT THIS TIME.
--- NOTE | 2018-12-24 12:00 | NUR ---
PT RESTING QUIETLY, NAD. BROTHER AT BS. WARM BLANKETS PROVIDED.
--- NOTE | 2018-12-24 12:15 | NUR ---
PER SOC, PT NOT TO BE ON LEGAL HOLD, NO NEED FOR SITTER. REQUEST FOR INPT MEDS SENT TO PHARMACY. PT OFFERED HOSPITAL BED WHILE WAITING FOR ADMIT ROOM-PT DECLINED. ED CARDIAC DIET TRAY ORDERED FOR PT.
--- NOTE | 2018-12-24 12:47 | NUR ---
MEAL TRAY PROVIDED. -
[2018-12-24] MEDS ORDERED: CYCLOBENZAPRINE 10 MG TABLET PO PRN (13:00)
[2018-12-24] MEDS ORDERED: ONDANSETRON 2MG/ML, 2ML IVPush PRN (13:00)
[2018-12-24] MEDS ORDERED: NITROGLYCERIN 0.4 MG BOTTLE (25 TABS) SL PRN (13:00)
[2018-12-24] MEDS ORDERED: DOCUSATE 100 MG CAPSULE PO PRN (13:00)
[2018-12-24] MEDS ORDERED: ACETAMINOPHEN 325 MG TABLET PO PRN (13:00)
[2018-12-24] MEDS ORDERED: GUAIFENESIN/COD200MG-20MG/10ML LIQUID PO PRN (13:00)
[2018-12-24] MEDS ORDERED: LABETALOL 5MG/ML, 20ML IVPush PRN (13:00)
[2018-12-24] MEDS: DABIGATRAN 150 MG CAPSULE PO SCH ×2 (13:17→21:15)
[2018-12-24] MEDS: LATANOPROST OPHTH 0.005%, 2.5ML OP SCH (13:18)
[2018-12-24] MEDS: ISOSORBIDE MONONITRATE ER 30 MG TABLET PO SCH (13:18)
--- NOTE | 2018-12-24 13:20 | NUR ---
SOME 1100 MEDS SENT FROM PHARMACY AND PROVIDED TO PT. CONTINUE TO AWAIT OTHER ADMIT ORDERED MEDS.
[2018-12-24 13:39] LABS: TROPONIN I 0.381 ng/mL (0.000-0.045)
--- NOTE | 2018-12-24 14:01 | NUR ---
DR LEE CALLED TO NOTIFY OF CRITICAL TROP OF .381. NOT FURTHER ORDERS AT THIS TIME.
[2018-12-24] MEDS ORDERED: AMLODIPINE 5 MG TABLET ONE (14:07)
[2018-12-24] MEDS ORDERED: OMEPRAZOLE 20 MG CAPSULE.DR ONE (14:07)
[2018-12-24] MEDS ORDERED: METOPROLOL TARTRATE 25 MG TABLET ONE (14:07)
[2018-12-24] MEDS ORDERED: LISINOPRIL 20 MG TABLET ONE (14:07)
[2018-12-24] MEDS ORDERED: SENNA/DOCUSATE TABLET ONE (14:07)
[2018-12-24] MEDS: OMEPRAZOLE 20 MG CAPSULE.DR PO SCH (14:11)
[2018-12-24] MEDS: METOPROLOL TARTRATE 25 MG TABLET PO SCH ×2 (14:11→21:14)
[2018-12-24] MEDS: LISINOPRIL 20 MG TABLET PO SCH (14:11)
[2018-12-24] MEDS: AMLODIPINE 5 MG TABLET PO SCH (14:12)
--- NOTE | 2018-12-24 14:15 | NUR ---
1100 MEDS GIVEN LATE, OBTAINED LATE. [facility] HELD DUE TO BP 102/47.
--- NOTE | 2018-12-24 15:23 | NUR ---
PT SLEEPING, NAD. VSS/UPDATED IN COMPUTER.
[2018-12-24] MEDS: ALBUTEROL/IPRATROPIUM 2.5MG/0.5MG, 3 ML HHN SCH ×2 (16:00→20:05)
--- NOTE | 2018-12-24 16:30 | NUR ---
[facility] INFORMED OF LATEST TROP AT .386. NO FURTHER ORDERS AT THIS TIME.
[2018-12-24 16:32] LABS: TROPONIN I 0.386 ng/mL (0.000-0.045)
--- NOTE | 2018-12-24 17:29 | NUR ---
REPORT TO GRACIE AMARAL. PT READY FOR TRANSPORT.
[2018-12-24 18:26] VITALS: BP 113/62
[2018-12-24 18:46] VITALS: BP_SYST 113; BP_SYST 114; BP_DIAS 62; BP_DIAS 74
[2018-12-24] MEDS ORDERED: ATORVASTATIN 20 MG TABLET PO SCH (21:00)
[2018-12-24] MEDS: SENNOSIDES 8.8 MG/5 ML ORAL SOL PO SCH (21:14)
[2018-12-24] MEDS: GUAIFENESIN ER 600 MG TABLET PO SCH (21:14)
[2018-12-24 22:19] VITALS: BP 123/61
[2018-12-25 03:04] VITALS: BP 117/66
[2018-12-25 05:32] LABS: ANION GAP 3 mmol/L (5-15); CALCIUM 7.8 mg/dL (8.5-10.1); CHLORIDE 112 mmol/L (98-107)
[2018-12-25 05:34] LABS: BASOPHILS # (AUTO) 0.03 x10^3/uL (0-0.1); BASOPHILS % (AUTO) 0 % (0-1); EOSINOPHILS # (AUTO) 0.21 x10^3/uL (0-0.4); EOSINOPHILS % (AUTO) 3 % (1-7); LYMPHOCYTES # (AUTO) 0.88 x10^3/uL (1-3.4); LYMPHOCYTES % (AUTO) 12 % (22-44); MD NO; MEAN CORPUSCULAR HEMOGLOBIN 30.9 pg (27.5-34.5); MEAN CORPUSCULAR HGB CONC 33.2 g/dL (33.2-36.2); MEAN CORPUSCULAR VOLUME 93.1 fL (81-97); MEAN PLATELET VOLUME 8.6 fL (7.4-10.4); MONOCYTES # (AUTO) 0.51 x10^3/uL (0.2-0.8); MONOCYTES % (AUTO) 7 % (2-9); NEUTROPHILS # (AUTO) 5.67 x10^3/uL (1.8-6.8); NEUTROPHILS % (AUTO) 78 % (42-75); PLATELET COUNT 189 x10^3/uL (130-400); RED BLOOD COUNT 3.25 x10^6/uL (4.38-5.82); RED CELL DISTRIBUTION WIDTH 17.3 % (9.4-14.8)
[2018-12-25 05:37] LABS: CHOL/HDL RATIO 2.7; CHOLESTEROL, TOTAL 138 mg/dL (140-239); CREATININE 0.74 mg/dL (0.7-1.3); HDL CHOL % 38 % (26-37); HDL CHOLESTEROL (DIRECT) 52 mg/dL (40-60); LDL CHOLESTEROL,CALCULATED 69 mg/dL (54-169); LDL/HDL RATIO 1.3 (0.5-3.0); TRIGLYCERIDES 85 mg/dL (50-200); VLDL CHOLESTEROL 17 mg/dL (0-25)
[2018-12-25] MEDS: ALBUTEROL/IPRATROPIUM 2.5MG/0.5MG, 3 ML HHN SCH ×2 (07:08→09:58)
[2018-12-25 07:10] VITALS: BP 103/63
[2018-12-25] MEDS: AMLODIPINE 5 MG TABLET PO SCH (09:00)
[2018-12-25] MEDS ORDERED: CLOPIDOGREL 75 MG TABLET PO SCH (09:00)
[2018-12-25] MEDS: LISINOPRIL 20 MG TABLET PO SCH (09:00)
[2018-12-25] MEDS: SENNOSIDES 8.8 MG/5 ML ORAL SOL PO SCH (09:00)
[2018-12-25] MEDS: LATANOPROST OPHTH 0.005%, 2.5ML OP SCH (09:00)
[2018-12-25] MEDS: (Budesonide/Formoterol Fumarate (Symbicort 160-4.5 Mcg Inhaler INH SCH (10:27)
[2018-12-25] MEDS: OMEPRAZOLE 20 MG CAPSULE.DR PO SCH (10:29)
[2018-12-25] MEDS: DABIGATRAN 150 MG CAPSULE PO SCH (10:29)
[2018-12-25] MEDS: METOPROLOL TARTRATE 25 MG TABLET PO SCH (10:31)
[2018-12-25] MEDS: GUAIFENESIN ER 600 MG TABLET PO SCH (10:31)
[2018-12-25] MEDS: ISOSORBIDE MONONITRATE ER 30 MG TABLET PO SCH (10:32)
[2018-12-25 11:35] VITALS: BP 94/58
[2018-12-25] MEDS ORDERED: LITH150C PO (14:18)
[2018-12-26] MEDS ORDERED: ALBUTEROL/IPRATROPIUM 2.5MG/0.5MG, 3 ML HHN SCH (06:00)
== END 2018-12-25 15:13 | disposition home or self-care (01) | DRG 948 ==
LOC: ED 06:28 → EDIP 08:15 → 5SO 18:16
PROVIDERS: ADMIT Internal Medicine; ATTEND Internal Medicine
DX: R79.89 Other specified abnormal findings of blood chemistry (principal); J96.11 Chronic respiratory failure with hypoxia; I11.0 Hypertensive heart disease with heart failure; D64.9 Anemia, unspecified; E78.5 Hyperlipidemia, unspecified; F31.9 Bipolar disorder, unspecified; I25.10 Atherosclerotic heart disease of native coronary artery without angina pectoris; I50.9 Heart failure, unspecified; J44.9 Chronic obstructive pulmonary disease, unspecified; K43.9 Ventral hernia without obstruction or gangrene; N40.0 Benign prostatic hyperplasia without lower urinary tract symptoms; Z79.01 Long term (current) use of anticoagulants; Z82.5 Family history of asthma and other chronic lower respiratory diseases; I25.2 Old myocardial infarction; Z85.51 Personal history of malignant neoplasm of bladder; Z86.718 Personal history of other venous thrombosis and embolism; Z86.79 Personal history of other diseases of the circulatory system; Z87.891 Personal history of nicotine dependence; Z91.14 Patient's other noncompliance with medication regimen; Z92.21 Personal history of antineoplastic chemotherapy; Z92.3 Personal history of irradiation; Z95.1 Presence of aortocoronary bypass graft; Z95.5 Presence of coronary angioplasty implant and graft
CPT/HCPCS: 36415; 70450; 71045; 80048; 80053; 80061; 80178; 80307; 80329; 81003; 82140; 83735; 84100; 84484; 85025; 93005; 94640; G0378; J7620; G0480

== ENCOUNTER 2019-01-29 16:54 | Emergency (ER) | payer MEDICARE ==
[~2019-01-29] VITALS: Ht 170.2 cm; Wt 75.0 kg
[~2019-01-29 16:54] MED LIST changes: +LITH150C PO
[2019-01-29] MEDS ORDERED: ALBUTEROL/IPRATROPIUM 2.5MG/0.5MG, 3 ML ONE (17:25)
[2019-01-29] MEDS ORDERED: methylPREDNISolone SOD SUCC 125 MG/2 ML IVP ONE (17:30)
[2019-01-29] MEDS ORDERED: ALBUTEROL/IPRATROPIUM 2.5MG/0.5MG, 3 ML NPPB ONE (17:30)
[2019-01-29 17:49] LABS: BASOPHILS # (AUTO) 0.04 x10^3/uL (0-0.1); BASOPHILS % (AUTO) 1 % (0-1); EOSINOPHILS # (AUTO) 0.16 x10^3/uL (0-0.4); EOSINOPHILS % (AUTO) 2 % (1-7); LYMPHOCYTES # (AUTO) 0.98 x10^3/uL (1-3.4); LYMPHOCYTES % (AUTO) 13 % (22-44); MD NO; MEAN CORPUSCULAR HEMOGLOBIN 31.7 pg (27.5-34.5); MEAN CORPUSCULAR HGB CONC 33.6 g/dL (33.2-36.2); MEAN CORPUSCULAR VOLUME 94.4 fL (81-97); MEAN PLATELET VOLUME 8.8 fL (7.4-10.4); MONOCYTES # (AUTO) 0.51 x10^3/uL (0.2-0.8); MONOCYTES % (AUTO) 7 % (2-9); NEUTROPHILS # (AUTO) 5.77 x10^3/uL (1.8-6.8); NEUTROPHILS % (AUTO) 77 % (42-75); PLATELET COUNT 201 x10^3/uL (130-400); RED BLOOD COUNT 3.34 x10^6/uL (4.38-5.82); RED CELL DISTRIBUTION WIDTH 16.8 % (9.4-14.8)
[2019-01-29 17:56] LABS: ALBUMIN 3.1 g/dL (3.4-5.0); ANION GAP 3 mmol/L (5-15); CHLORIDE 116 mmol/L (98-107)
[2019-01-29 17:58] LABS: CREATININE 1.12 mg/dL (0.7-1.3)
[2019-01-29] MEDS ORDERED: methylPREDNISolone SOD SUCC 125 MG/2 ML ONE (18:07)
[2019-01-29 18:13] VITALS: BP 92/54
--- NOTE | 2019-01-29 18:32 | NUR ---
DR. SHELBY AT BEDSIDE.
[2019-01-29] MEDS ORDERED: AZITHROMYCIN 500 MG TABLET ONE (19:04)
[2019-01-29] MEDS ORDERED: AZITHROMYCIN 500 MG TABLET PO ONE (19:30)
== END 2019-01-29 19:20 | disposition home or self-care (01) ==
LOC: ED 19:14
DX: J43.9 Emphysema, unspecified (principal); F17.200 Nicotine dependence, unspecified, uncomplicated; I25.2 Old myocardial infarction; I50.9 Heart failure, unspecified
CPT/HCPCS: 36415; 71045; 80048; 82040; 85025; 94640; 96374; 99284; J2930; J7620

== ENCOUNTER 2021-07-17 10:56 | Inpatient (IN) | payer MEDICARE ==
[~2021-07-17] VITALS: Ht 170.2 cm; Wt 65.6 kg
[2021-07-19 12:38] VITALS: BP 108/69
== END 2021-07-19 17:46 | disposition home or self-care (01) | DRG 177 ==
LOC: ED 14:38 → EDIP 14:39 → ED 16:13 → 4WST 18:37
PROVIDERS: ADMIT Internal Medicine; ATTEND Hospitalist
DX: U07.1 COVID-19 (principal); J96.21 Acute and chronic respiratory failure with hypoxia; J12.82 Pneumonia due to coronavirus disease 2019; J44.0 Chronic obstructive pulmonary disease with (acute) lower respiratory infection; F31.9 Bipolar disorder, unspecified; H40.9 Unspecified glaucoma; I25.10 Atherosclerotic heart disease of native coronary artery without angina pectoris; I25.2 Old myocardial infarction; I50.9 Heart failure, unspecified; I71.4 Abdominal aortic aneurysm, without rupture; Z72.0 Tobacco use; Z85.51 Personal history of malignant neoplasm of bladder; Z86.79 Personal history of other diseases of the circulatory system; Z95.1 Presence of aortocoronary bypass graft